=== PATIENT | male | born 1940 | race Caucasian/White ===

== ENCOUNTER 2017-12-03 07:10 | Day surgery (SDC) | payer MEDICARE, OTHER ==
[~2017-12-03] VITALS: Ht 180.3 cm; Wt 93.6 kg
--- NOTE | ~2017-12-03 | OP ---
PATIENT NAME: MARCEL SRINIVASAN MEDICAL RECORD: [id number] :44 LOCATION:[facility] ADMISSION DATE: SURGEON: ROXANNE WELDON DO DATE OF OPERATION: 12/03/2017 PROCEDURE: Colonoscopy with polypectomy. INDICATION FOR PROCEDURE: History of colon polyps and family history positive for colon cancer in the patient's father. SCOPE: Olympus video pediatric colonoscope. MEDICATIONS: Propofol 300 mg IV per anesthesia. WITHDRAWAL TIME: 20 minutes. ESTIMATED BLOOD LOSS: Minimal. COMPLICATIONS: None. FINDINGS: Informed consent was given. The patient was made comfortable with the above medication. After reaching an adequate level of sedation by slow IV push, the patient was placed on his left side. A digital rectal examination was performed and was normal. The endoscope was then advanced under direct visualization through the rectum to the cecum, confirmed by the presence of appendiceal orifice and ileocecal valve. The endoscope was slowly withdrawn and mucosa was carefully examined. The prep quality was good. There were multiple polyps visualized on today's examination. There was one benign-appearing sessile polyp which measured approximately 2-3 mm in diameter, removed from the cecum with hot forceps. The polyp was completely removed and cauterized. In the ascending colon, there were 4 separate benign-appearing sessile polyps which ranged in size from 2-5 mm in diameter. They were all removed using hot forceps. In the transverse colon, there was a single benign-appearing sessile polyp which measured approximately 5 mm in diameter. It was removed using hot forceps. There were no other findings on the examination throughout the entire colon. Retroflexion was performed in the rectum with visualization of grade I internal hemorrhoids without bleeding. The endoscope was then withdrawn from the patient. The patient tolerated the procedure well and there were no complications. IMPRESSIONS: 1. Multiple polyps as described above, removed using hot forceps. 2. Grade I internal hemorrhoids without bleeding. PLAN AND RECOMMENDATIONS: 1. Discharge home when recovery parameters are met. 2. Followup biopsy specimen results. 3. High-fiber diet. 4. Continue current medications. 5. No recall colonoscopies are necessary based on the patient's age. If symptoms warrant further evaluation, this can be performed. TRANSINT:[id number] Voice Confirmation ID: [id number] DOCUMENT ID: [id number] OPERATIVE REPORT [id number] MARCEL SRINIVASAN ROXANNE WELDON DO at 1600 CC: [id number] DICTATION DATE: 12/03/17 0936 DATA MODELING ARCHITECT: 12/03/17 1237 [facility] 12/03/17 [id number] [place] [address]
[~2017-12-03 07:10] MED LIST: HYDROCODONE-APA1 TAB PO; PRILOSEC20 MG PO; SOMA350 MG PO; ZESTORETIC 20-1 EACH PO
[2017-12-03 07:28] LABS: HEMATOCRIT 45.7 % (42.0-54.0); HEMOGLOBIN 16.1 g/dL (13.5-17.5); MCH 32.2 pg (26.0-34.0); MCHC 35.2 g/dL (31.0-37.0); MCV 91.4 fL (80.0-100.0); MEAN PLATELET VOLUME 8.8 fL (7.4-10.4); RDW 12.7 % (11.5-14.5); WBC 6.4 10x3/uL (4.8-10.8)
[2017-12-03 07:41] LABS: CALCIUM 9.6 mg/dL (8.5-10.1); CARBON DIOXIDE 30.1 mmol/L (21.0-32.0); CREATININE - SERUM 1.3 mg/dL (0.6-1.3); POTASSIUM - SERUM 4.1 mmol/L (3.5-5.1)
[2017-12-03] MEDS ORDERED: CBD OIL PO (08:28)
[2017-12-03] MEDS ORDERED: POTASSIUM99 M1 PO (08:29)
[2017-12-03] MEDS ORDERED: VITAMIN D3400 UNI1 PO (08:29)
[2017-12-03] MEDS ORDERED: MAG-OXIDE400 MG PO (08:30)
[2017-12-03] MEDS ORDERED: COCONUT OIL PO (08:30)
[2017-12-03 08:32] VITALS: BP 139/79; Ht 180.3 cm; Wt 93.6 kg
== END 2017-12-03 10:25 | disposition home or self-care (01) ==
LOC: D.OPS 07:10
PROVIDERS: Anesthesiology
DX: D12.2 Benign neoplasm of ascending colon (principal); D12.0 Benign neoplasm of cecum; K63.5 Polyp of colon; Z86.010 Personal history of colon polyps; Z80.0 Family history of malignant neoplasm of digestive organs; K64.0 First degree hemorrhoids; Z01.812 Encounter for preprocedural laboratory examination